=== PATIENT | male | born 1955 | race Caucasian/White ===

== ENCOUNTER 2018-11-06 11:30 | Inpatient (IN) | payer OTHER ==
[2018-11-06 13:33] VITALS: BMI 26.1
--- NOTE | 2018-11-06 17:22 | HP ---
COWS - Scale Resting Pulse: 1= [place] 81-100 Sweatin= Chills/Flushing Restless Observation: 1= Difficult to Sit Still Pupil Size: 1= Pupils >than Normal Bone or Joint Aches: 1= Mild Discomfort Runny Nose/ Eye Tearin= Nasal Congestion GI Upset > 30mins: 1= Stomach Cramp Tremor Observation: 1= Tremor [place], Not Seen Yawning Observation: 2= >3x During Session Anxiety or Irritability: 2=Irritable/Anxious Goose Flesh Skin: 0=Smooth Skin COWS Score: 12 CIWA Score - Admission Criteria OASAS Guidelines: Admission for Medically Managed Detox: Requires at least one of the followin. CIWA greater than 12 2. Seizures within the past 24 hours 3. Delirium tremens within the past 24 hours 4. Hallucinations within the past 24 hours 5. Acute intervention needed for co occurring medical disorder 6. Acute intervention needed for co occurring psychiatric disorder 7. Severe withdrawal that cannot be handled at a lower level of care (continued vomiting, continued diarrhea, abnormal vital signs) requiring intravenous medication and/or fluids 8. Admission [facility] Chief Complaint: heroin detox Allergies/Adverse Reactions: Allergies Allergy/AdvReac Type Severity Reaction Status Date / Time No Known Allergies Allergy Verified 11/06/18 13:22 History of Present Illness: Patient is a 63 yo M with no known PMHx, was sent because of [place] for heroin detox. Has been sniffing heroin for a couple of years. 3 bags of heroin daily. Last use this morning, 2 bags. Denies ever being in a methadone program. Was on suboxone 2.5 years. Last use was Monday. says he was depressed and decided to use heroin instead. Denies overdose. carries narcan pen with him. Denies other drug use.Denies IV drug use. Currently unemployed. Lives in a senior living. Smokes 5-10 cigarettes. - Ebola screening Have you traveled outside of the country in the last 21 days: No Have you had contact with anyone from an Ebola affected area: No - Review of Systems Respiratory: denies: Cough, Shortness of Breath Cardiac: denies: Chest Pain, Palpitations Neuro: denies: Headache Patient History - Smoking Cessation Smoking history: Current every day smoker Initiated information on smoking cessation: Yes 'Breaking Loose' booklet given: 11/06/18 - Substances abused Heroin Substance route: Inhalation Frequency: Daily Amount used: 3bags Age of first use: 33 Date of last use: 11/06/18 Family Disease History - Family Disease History Family History: Denies Admission Physical Exam S - Vital Signs Vital Signs: Vital Signs - 24 hr 11/06/18 13:21 Temperature 97.0 F L Pulse Rate 64 Respiratory 18 Rate Blood Pressure 120/77 - Physical General Appearance: Yes: No Apparent Distress Respiratory: Yes: No Respiratory Distress, No Accessory Muscle Use Cardiology: Yes: Regular Rhythm, Regular Rate Abdominal: Yes: Non Tender, Soft Extremities: No: Swelling - Diagnostic (1) Heroin abuse Current Visit: Yes Status: Acute Breathalyzer - Breathalyzer Breathalyzer: 0 Urine Drug Screen - Test Device Lot number: [id number] Expiration date: 07/20/20 - Control Is test valid?: Yes - Results Drug screen NEGATIVE: No Urine drug screen results: MET-Methamphetamine, FEN-Fentanyl, MOP-Opiates, OXY- Oxycodone, BUP-Suboxone Inpatient Rehab Admission - Rehab Decision to Admit Inpatient rehab admission?: No
[2018-11-06] MEDS ORDERED: MAGNESIUM HYDROX 2400MG/30ML ORAL SUSPENSION 30 ML CUP PO PRN (17:36)
[2018-11-06] MEDS ORDERED: MAG HYDROX/AL HYDROX/SIMETH 30 ML UNIT-DOSE CUP PO PRN (17:36)
[2018-11-06] MEDS ORDERED: IBUPROFEN 400 MG TABLET (FP) PO PRN (17:36)
[2018-11-06] MEDS ORDERED: MENTHOL/PHENOL 1 EACH UD MM PRN (17:36)
[2018-11-06] MEDS ORDERED: MAGNESIUM CITRATE 300 ML BOTTLE PO PRN (17:36)
[2018-11-06] MEDS ORDERED: ACETAMINOPHEN 325 MG TABLET (FP) PO PRN ×2 (17:36)
[2018-11-06] MEDS ORDERED: BISMUTH SUBSALICYLATE 524 MG/30 ML UD PO PRN (17:36)
[2018-11-06] MEDS ORDERED: cloNIDine HCL 0.1 MG TABLET PO PRN (17:36)
--- NOTE | 2018-11-06 17:40 | PN ---
Teaching Attending Note Name of Resident: Fabricio Nelson ATTENDING PHYSICIAN STATEMENT I saw and evaluated the patient. I reviewed the resident's note and discussed the case with the resident. I agree with the resident's findings and plan as documented. SUBJECTIVE: 63 yo with long h/o opioid use disorder, is on Suboxone- not using for several days, started using heroin again. [place] noted pos utox- pt sent here for treatment OBJECTIVE: Vital Signs - 24 hr 11/06/18 13:21 Temperature 97.0 F L Pulse Rate 64 Respiratory 18 Rate Blood Pressure 120/77 alert and oriented ASSESSMENT AND PLAN: opioid use disorder- methadone detox protocol
[2018-11-06] MEDS ORDERED: METHADONE HCL 10 MG TABLET (FOR DETOX USE ONLY) PO ONE (17:50)
[2018-11-06] MEDS: THIAMINE HCL 100 MG TABLET (FP) PO SCH (22:18)
[2018-11-07 09:53] LABS: HEMATOCRIT 39.2 % (35.4-49); HEMOGLOBIN 12.9 GM/dL (11.7-16.9); MCH 28.7 pg (25.7-33.7); MEAN CELL VOLUME 86.8 fl (80-96); MEAN PLT VOLUME 9.6 fl (7.5-11.1); PLATELET COUNT 184 K/MM3 (134-434); RBC 4.51 M/mm3 (4.00-5.60); WHITE BLOOD COUNT 4.7 K/mm3 (4.0-10.0)
[2018-11-07] MEDS ORDERED: METHADONE HCL 5 MG TABLET (FOR DETOX USE ONLY) PO ONE (10:00)
[2018-11-07 10:05] LABS: BILIRUBIN,TOTAL 0.6 mg/dL (0.2-1); BLOOD UREA NITROGEN 13.3 mg/dL (7-18); CALCIUM 8.6 mg/dL (8.5-10.1); CREATININE 0.9 mg/dL (0.55-1.3); POTASSIUM 4.6 mmol/L (3.5-5.1); TOT PROT 5.7 g/dl (6.4-8.2)
[2018-11-07] MEDS: PRENATAL VITAMINS W/ FOLIC ACID TABLET (FP) PO SCH (10:05)
--- NOTE | 2018-11-07 12:13 | PN ---
BHS COWS - Scale Resting Pulse: 0= [place] 80 or Below Sweatin= Chills/Flushing Restless Observation: 0= Sits Still Pupil Size: 1= Pupils >than Normal Bone or Joint Aches: 1= Mild Discomfort Runny Nose/ Eye Tearin= Nasal Congestion GI Upset > 30mins: 1= Stomach Cramp Tremor Observation of Outstretched Hands: 2= Slight Tremor Visible Yawning Observation: 1= 1-2x During Session Anxiety or Irritability: 2=Irritable/Anxious Goose Flesh Skin: 0=Smooth Skin COWS Score: 10 BHS Progress Note (SOAP) Subjective: doing well with methadone detox regimen mild sweat tolerate food and fluid well Objective: 11/07/18 12:13 Vital Signs Temperature 97.5 F L 11/07/18 09:28 Pulse Rate 65 11/07/18 09:28 Respiratory Rate 18 11/07/18 09:28 Blood Pressure 115/65 11/07/18 09:28 O2 Sat by Pulse Oximetry (%) Laboratory Last Values WBC 4.7 K/mm3 (4.0-10.0) 11/07/18 08:20 RBC 4.51 M/mm3 (4.00-5.60) 11/07/18 08:20 Hgb 12.9 GM/dL (11.7-16.9) 11/07/18 08:20 Hct 39.2 % (35.4-49) 11/07/18 08:20 MCV 86.8 fl (80-96) 11/07/18 08:20 MCH 28.7 pg (25.7-33.7) 11/07/18 08:20 MCHC 33.0 g/dl (32.0-35.9) 11/07/18 08:20 RDW 14.0 % (11.9-15.9) 11/07/18 08:20 Plt Count 184 K/MM3 (134-434) 11/07/18 08:20 MPV 9.6 fl (7.5-11.1) 11/07/18 08:20 Sodium 137 mmol/L (136-145) 11/07/18 08:20 Potassium 4.6 mmol/L (3.5-5.1) 11/07/18 08:20 Chloride 102 mmol/L (98-107) 11/07/18 08:20 Carbon Dioxide 32 mmol/L (21-32) 11/07/18 08:20 Anion Gap 4 MMOL/L (8-16) L 11/07/18 08:20 BUN 13.3 mg/dL (7-18) 11/07/18 08:20 Creatinine 0.9 mg/dL (0.55-1.3) 11/07/18 08:20 Est GFR (CKD-EPI)AfAm 106.46 11/07/18 08:20 Est GFR (CKD-EPI)NonAf 91.86 11/07/18 08:20 Random Glucose 87 mg/dL (74-106) 11/07/18 08:20 Calcium 8.6 mg/dL (8.5-10.1) 11/07/18 08:20 Total Bilirubin 0.6 mg/dL (0.2-1) 11/07/18 08:20 AST 15 U/L (15-37) 11/07/18 08:20 ALT 18 U/L (13-61) 11/07/18 08:20 Alkaline Phosphatase 54 U/L (45-117) 11/07/18 08:20 Total Protein 5.7 g/dl (6.4-8.2) L 11/07/18 08:20 Albumin 3.0 g/dl (3.4-5.0) L 11/07/18 08:20 RPR Titer Nonreactive (NONREACTIVE) 11/07/18 08:20 lab noted Assessment: 11/07/18 12:13 opiate withdrawal sx Plan: continue methadone detox regimen
[2018-11-07] MEDS: THIAMINE HCL 100 MG TABLET (FP) PO SCH (22:15)
[2018-11-07] MEDS: hydrOXYzine PAMOATE 25 MG CAPSULE (FP) PO PRN (22:15)
[2018-11-07] MEDS: METHOCARBAMOL 500 MG TABLET PO PRN (22:15)
[2018-11-07] MEDS: MELATONIN 5 MG TABLETS PO PRN (22:16)
[2018-11-08] MEDS ORDERED: METHADONE HCL 10 MG TABLET (FOR DETOX USE ONLY) PO ONE (10:00)
[2018-11-08] MEDS: PRENATAL VITAMINS W/ FOLIC ACID TABLET (FP) PO SCH (10:16)
[2018-11-08] MEDS: METHOCARBAMOL 500 MG TABLET PO PRN (10:17)
--- NOTE | 2018-11-08 12:40 | PN ---
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 narcan [facility] upon discharge patient prefers transition to [facility] patient agrees to brining in medication list and lab report to aftercare facility if possible may begin bp monitor and control Objective: 11/08/18 12:41 Vital Signs Temperature 97.0 F L 11/08/18 09:58 Pulse Rate 66 11/08/18 09:58 Respiratory Rate 18 11/08/18 09:58 Blood Pressure 144/88 11/08/18 09:58 O2 Sat by Pulse Oximetry (%) Laboratory Last Values WBC 4.7 K/mm3 (4.0-10.0) 11/07/18 08:20 RBC 4.51 M/mm3 (4.00-5.60) 11/07/18 08:20 Hgb 12.9 GM/dL (11.7-16.9) 11/07/18 08:20 Hct 39.2 % (35.4-49) 11/07/18 08:20 MCV 86.8 fl (80-96) 11/07/18 08:20 MCH 28.7 pg (25.7-33.7) 11/07/18 08:20 MCHC 33.0 g/dl (32.0-35.9) 11/07/18 08:20 RDW 14.0 % (11.9-15.9) 11/07/18 08:20 Plt Count 184 K/MM3 (134-434) 11/07/18 08:20 MPV 9.6 fl (7.5-11.1) 11/07/18 08:20 Sodium 137 mmol/L (136-145) 11/07/18 08:20 Potassium 4.6 mmol/L (3.5-5.1) 11/07/18 08:20 Chloride 102 mmol/L (98-107) 11/07/18 08:20 Carbon Dioxide 32 mmol/L (21-32) 11/07/18 08:20 Anion Gap 4 MMOL/L (8-16) L 11/07/18 08:20 BUN 13.3 mg/dL (7-18) 11/07/18 08:20 Creatinine 0.9 mg/dL (0.55-1.3) 11/07/18 08:20 Est GFR (CKD-EPI)AfAm 106.46 11/07/18 08:20 Est GFR (CKD-EPI)NonAf 91.86 11/07/18 08:20 Random Glucose 87 mg/dL (74-106) 11/07/18 08:20 Calcium 8.6 mg/dL (8.5-10.1) 11/07/18 08:20 Total Bilirubin 0.6 mg/dL (0.2-1) 11/07/18 08:20 AST 15 U/L (15-37) 11/07/18 08:20 ALT 18 U/L (13-61) 11/07/18 08:20 Alkaline Phosphatase 54 U/L (45-117) 11/07/18 08:20 Total Protein 5.7 g/dl (6.4-8.2) L 11/07/18 08:20 Albumin 3.0 g/dl (3.4-5.0) L 11/07/18 08:20 RPR Titer Nonreactive (NONREACTIVE) 11/07/18 08:20 lab noted Assessment: 11/08/18 12:41 Vital Signs Temperature 97.0 F L 11/08/18 09:58 Pulse Rate 66 11/08/18 09:58 Respiratory Rate 18 11/08/18 09:58 Blood Pressure 144/88 11/08/18 09:58 O2 Sat by Pulse Oximetry (%) Laboratory Last Values WBC 4.7 K/mm3 (4.0-10.0) 11/07/18 08:20 RBC 4.51 M/mm3 (4.00-5.60) 11/07/18 08:20 Hgb 12.9 GM/dL (11.7-16.9) 11/07/18 08:20 Hct 39.2 % (35.4-49) 11/07/18 08:20 MCV 86.8 fl (80-96) 11/07/18 08:20 MCH 28.7 pg (25.7-33.7) 11/07/18 08:20 MCHC 33.0 g/dl (32.0-35.9) 11/07/18 08:20 RDW 14.0 % (11.9-15.9) 11/07/18 08:20 Plt Count 184 K/MM3 (134-434) 11/07/18 08:20 MPV 9.6 fl (7.5-11.1) 11/07/18 08:20 Sodium 137 mmol/L (136-145) 11/07/18 08:20 Potassium 4.6 mmol/L (3.5-5.1) 11/07/18 08:20 Chloride 102 mmol/L (98-107) 11/07/18 08:20 Carbon Dioxide 32 mmol/L (21-32) 11/07/18 08:20 Anion Gap 4 MMOL/L (8-16) L 11/07/18 08:20 BUN 13.3 mg/dL (7-18) 11/07/18 08:20 Creatinine 0.9 mg/dL (0.55-1.3) 11/07/18 08:20 Est GFR (CKD-EPI)AfAm 106.46 11/07/18 08:20 Est GFR (CKD-EPI)NonAf 91.86 11/07/18 08:20 Random Glucose 87 mg/dL (74-106) 11/07/18 08:20 Calcium 8.6 mg/dL (8.5-10.1) 11/07/18 08:20 Total Bilirubin 0.6 mg/dL (0.2-1) 11/07/18 08:20 AST 15 U/L (15-37) 11/07/18 08:20 ALT 18 U/L (13-61) 11/07/18 08:20 Alkaline Phosphatase 54 U/L (45-117) 11/07/18 08:20 Total Protein 5.7 g/dl (6.4-8.2) L 11/07/18 08:20 Albumin 3.0 g/dl (3.4-5.0) L 11/07/18 08:20 RPR Titer Nonreactive (NONREACTIVE) 11/07/18 08:20 lab noted Plan: continue methadone detox regimen discuss dietary regimen for bp elevation
[2018-11-08] MEDS: MELATONIN 5 MG TABLETS PO PRN (22:31)
[2018-11-08] MEDS: THIAMINE HCL 100 MG TABLET (FP) PO SCH (22:31)
[2018-11-09] MEDS: hydrOXYzine PAMOATE 25 MG CAPSULE (FP) PO PRN (01:32)
[2018-11-09] MEDS ORDERED: METHADONE HCL 5 MG TABLET (FOR DETOX USE ONLY) PO ONE (06:00)
[2018-11-09 06:09] VITALS: BP 156/91; PULSE 58; TEMP 97.6
--- NOTE | 2018-11-09 18:24 | DS ---
[facility] Detox Discharge Summary Admission Date: 11/06/18 Discharge Date: 11/09/18 - History Present History: Opioid Dependence Additional Comments: PATIENT RETURNING HOME. PATIENT ADVISED TO CONSIDER LOCAL 12-STEP / NA OUTPATIENT SUPPORT GROUP PROGRAMS FOR AFTERCARE. PATIENT VERBALIZED UNDERSTANDING OF RECOMMENDATION. PATIENT WAS DISCHARGED FROM DETOX UNIT IN STABLE MEDICAL CONDITION. Pertinent Past History: Patient Denied. - Physical Exam Results Vital Signs: Vital Signs Temperature 97.6 F 11/09/18 06:08 Pulse Rate 58 L 11/09/18 06:08 Respiratory Rate 18 11/09/18 06:08 Blood Pressure 156/91 11/09/18 06:08 O2 Sat by Pulse Oximetry (%) Pertinent Admission Physical Exam Findings: WITHDRAWAL SYMPTOMS. Laboratory Tests 11/07/18 11/07/18 11/07/18 08:20 08:20 08:20 WBC 4.7 RBC 4.51 Hgb 12.9 Hct 39.2 MCV 86.8 MCH 28.7 MCHC 33.0 RDW 14.0 Plt Count 184 MPV 9.6 Sodium 137 Potassium 4.6 Chloride 102 Carbon Dioxide 32 Anion Gap 4 L BUN 13.3 Creatinine 0.9 Est GFR (CKD-EPI)AfAm 106.46 Est GFR (CKD-EPI)NonAf 91.86 Random Glucose 87 Calcium 8.6 Total Bilirubin 0.6 AST 15 ALT 18 Alkaline Phosphatase 54 Total Protein 5.7 L Albumin 3.0 L RPR Titer Nonreactive TB (QFT) Incubation TB Test (QFT) Nil TB Test (QFT) Mitogen TB Test (QFT) Antigen TB Test (QFT) TB Positive Criteria 11/07/18 08:20 WBC RBC Hgb Hct MCV MCH MCHC RDW Plt Count MPV Sodium Potassium Chloride Carbon Dioxide Anion Gap BUN Creatinine Est GFR (CKD-EPI)AfAm Est GFR (CKD-EPI)NonAf Random Glucose Calcium Total Bilirubin AST ALT Alkaline Phosphatase Total Protein Albumin RPR Titer TB (QFT) Incubation TB Test (QFT) Nil 0.03 TB Test (QFT) Mitogen >10.00 TB Test (QFT) Antigen 0.04 TB Test (QFT) Negative TB Positive Criteria LABS NOTED. - Treatment Hospital Course: Detox Protocol Followed, Detoxed Safely, Responded well, Discharged Condition Good Patient has Accepted a Rehab Referral to: PT. ADVISED TO CONSIDER LOCAL 12-STEP / NA OUTPATIENT SUPPORT PROGRAMS. - Medication Discharge Medications: Ambulatory Orders Naloxone HCl [Narcan] 4 mg NS ASDIR PRN #1 spray 11/08/18 - Diagnosis (1) Heroin abuse Status: Acute - AMA Did Patient Leave Against Medical Advice: No BHS COWS - Scale Resting Pulse: 0= [place] 80 or Below Sweatin= No chills or Flushing Restless Observation: 1= Difficult to Sit Still Pupil Size: 0= Normal to Room Light Bone or Joint Aches: 0= None Runny Nose/ Eye Tearin= None GI Upset > 30mins: 0= None Tremor Observation of Outstretched Hands: 0= None Yawning Observation: 1= 1-2x During Session Anxiety or Irritability: 0= None Goose Flesh Skin: 0=Smooth Skin COWS Score: 2
== END 2018-11-09 09:16 | disposition home or self-care (01) | DRG 773 ==
LOC: YASAS 11:30 → Y3N 17:47
PROVIDERS: ADMIT Surgery; ATTEND Surgery
PROC: HZ2ZZZZ Detoxification Services for Substance Abuse Treatment (ICD-10-PCS; principal; 2018-11-06)
DX: F11.23 Opioid dependence with withdrawal (principal); Z59.0 Homelessness
CPT/HCPCS: 36415; 80053; 85027; 86480; 86593